=== PATIENT | female | born 2000 | race Caucasian/White ===

== ENCOUNTER 2019-05-14 18:34 | Emergency (ER) | payer SELFPAY | END 2019-05-14 20:30 | disposition left against medical advice (07) | LOC: MW.ED 18:34 | DX: Z53.21 Procedure and treatment not carried out due to patient leaving prior to being seen by health care provider (principal) ==

== ENCOUNTER 2020-10-04 05:41 | Inpatient (IN) | payer MEDICAID ==
[2020-10-04] MEDS ORDERED: Water For Irrigation,Sterile 1,000 ML Container IRR PRN (05:59)
[2020-10-04] MEDS ORDERED: Misoprostol 200 MCG Tab PO PRN (05:59)
[2020-10-04] MEDS ORDERED: Sodium Chloride 0.9% 2.5 ML Syringe FLUSH PRN (05:59)
[2020-10-04] MEDS ORDERED: Lidocaine 1% 50 ML MDV INJECT PRN (05:59)
[2020-10-04] MEDS ORDERED: Tranexamic Acid 1,000 MG in Sodium Chloride 0.9% 100 ML IV PRN (05:59)
[2020-10-04] MEDS ORDERED: Butorphanol 1 MG/ML SDV IVPUSH PRN (05:59)
[2020-10-04] MEDS ORDERED: Sodium Chloride 0.9% 10 ML Syringe FLUSH PRN (05:59)
[2020-10-04] MEDS ORDERED: Carboprost Tromethamine 250 MCG/1 ML Amp IM PRN (05:59)
[2020-10-04] MEDS ORDERED: Methylergonovine 0.2 MG/1 ML Amp IM PRN (05:59)
[2020-10-04] MEDS ORDERED: Nalbuphine 10 MG/1 ML Vial IVPUSH PRN (05:59)
[2020-10-04] MEDS ORDERED: Sodium Chloride 0.9% 10 ML SDV IV PRN (05:59)
[2020-10-04] MEDS ORDERED: Oxytocin/0.9 % Sodium Chloride 30 UNIT/500 ML BAG IV SCH (06:00)
[2020-10-04] MEDS: Lactated Ringers 1,000 ML IV SCH ×3 (07:15→08:46)
[2020-10-04] MEDS ORDERED: Ropivacaine HCl/PF 200 ML ONE (08:06)
[2020-10-04] MEDS ORDERED: Bupivacaine 0.25% 10 ML SDV ONE (08:07)
--- NOTE | 2020-10-04 08:35 | PCM.PREANE ---
Preanesthetic Assessment - Anesthesia/Transfusion/Family Hx Anesthesia History: Prior Anesthesia Without Reaction - Review of Systems General: No Symptoms Pulmonary: No Symptoms Cardiovascular: No Symptoms Gastrointestinal: No Symptoms Neurological: No Symptoms Other: Reports: None - Physical Assessment NPO Status Date: 10/04/20 NPO Status Time: 00:00 Height: 5 ft 2 in Weight: 123 lb ASA Class: 2 Mental Status: Alert & Oriented x3 Airway Class: Mallampati = 3 Dentition: Reports: Normal Dentition ROM/Head Extension: Full Lungs: Clear to Auscultation, Normal Respiratory Effort Cardiovascular: Regular Rate, Regular Rhythm - Lab Values: Laboratory Last Values WBC 15.11 K/uL (4.0-11.0) H 10/04/20 06:20 RBC 4.19 M/uL (4.30-5.90) L 10/04/20 06:20 Hgb 11.0 g/dL (12.0-16.0) L 10/04/20 06:20 Hct 33.4 % (36.0-46.0) L 10/04/20 06:20 MCV 79.7 fL (80.0-98.0) L 10/04/20 06:20 MCH 26.3 pg (27.0-32.0) L 10/04/20 06:20 MCHC 32.9 g/dL (31.0-37.0) 10/04/20 06:20 RDW Std Deviation 41.7 fl (28.0-62.0) 10/04/20 06:20 RDW Coeff of Sam 15 % (11.0-15.0) 10/04/20 06:20 Plt Count 386 K/uL (150-400) 10/04/20 06:20 MPV 9.10 fL (7.40-12.00) 10/04/20 06:20 Nucleated RBC % 0.0 /100WBC 10/04/20 06:20 Nucleated RBCs # 0 K/uL 10/04/20 06:20 - Blood Blood Available: Yes Product(s) Available: PRBC - Anesthesia Plan Pre-Op Medication Ordered: None - Acknowledgements Anesthesia Type Planned: Epidural Pt an Appropriate Candidate for the Planned Anesthesia: Yes Alternatives and Risks of Anesthesia Discussed w Pt/Guardian: Yes Pt/Guardian Understands and Agrees with Anesthesia Plan: Yes PreAnesthesia Questionnaire - Past Health History Medical/Surgical History: Denies Medical/Surgical History HEENT History: Reports: Other (See Below) Other HEENT History: chronic excessive wax buildup - Past Surgical History Head Surgeries/Procedures: Reports: None HEENT Surgical History: Reports: None - SUBSTANCE USE Tobacco Use Status *Q: Never Tobacco User Tobacco Use Within Last Twelve Months: No Recreational Drug Use History: No - CURRENT (IN HOUSE) MEDS Current Meds: Current Medications Butorphanol Tartrate (Butorphanol 1 Mg/Ml Sdv) 1 mg IVPUSH Q1H PRN PRN Reason: Pain (severe 7-10) Carboprost Tromethamine (Carboprost Tromethamine 250 Mcg/1 Ml Amp) 250 mcg IM ASDIRECTED PRN PRN Reason: Post Hemorrhage Oxytocin/Sodium Chloride (Oxytocin 30 Unit/500 Ml-Ns) 30 unit in 500 mls @ 125 mls/hr IV TITRATE KELL[facility] Tranexamic Acid 1,000 mg/ (Sodium Chloride) 110 mls @ 660 mls/hr IV ONETIME PRN PRN Reason: Bleeding Lactated Ringer's (Ringers, Lactated) 1,000 mls @ 150 mls/hr IV ASDIRECTED KELLEN Lidocaine HCl (Lidocaine 1% 50 Ml Mdv) 50 ml INJECT ONETIME PRN PRN Reason: Laceration repair Methylergonovine Maleate (Methylergonovine 0.2 Mg/1 Ml Amp) 0.2 mg IM ASDIRECTED PRN PRN Reason: Post Hemorrhage Misoprostol (Misoprostol 200 Mcg Tab) 200 mcg PO ONETIME PRN PRN Reason: Post Hemorrhage Nalbuphine HCl (Nalbuphine 10 Mg/1 Ml Vial) 10 mg IVPUSH Q1H PRN PRN Reason: Pain (severe 7-10) Sodium Chloride (Sodium Chloride 0.9% 10 Ml Syringe) 10 ml FLUSH ASDIRECTED PRN PRN Reason: Keep Vein Open Sodium Chloride (Sodium Chloride 0.9% 2.5 Ml Syringe) 2.5 ml FLUSH ASDIRECTED PRN PRN Reason: Keep Vein Open Sodium Chloride (Sodium Chloride 0.9% 10 Ml Sdv) 10 ml IV ASDIRECTED PRN PRN Reason: IV Use Sterile Water (Water For Irrigation,Sterile 1,000 Ml Container) 1,000 ml IRR ASDIRECTED PRN PRN Reason: delivery Discontinued Medications Bupivacaine HCl (Bupivacaine 0.25% 10 Ml Sdv) Confirm Administered Dose 10 ml .ROUTE .STK-MED ONE Stop: 10/04/20 08:08 Ropivacaine (Naropin 0.2%) Confirm Administered Dose 200 mls @ as directed .ROUTE .[place]-[facility] ONE Stop: 10/04/20 08:07 - Pre-Procedure Checklist Attending Provider Aware: Yes Chart Reviewed: Yes Consent Signed: Yes Labs Reviewed: Yes VS/FHR Reviewed: Yes Patient Identification Confirmation Method: Reports: Verbal Patient Pt an Appropriate Candidate for the Planned Anesthesia: Yes Alternatives and Risks of Anesthesia Discussed w Pt/Guardian: Yes - Procedure Procedure Start Date: 10/04/20 Procedure Start Time: 07:[address]: Reports: Blood Pressure, Heart Rate, SPO2 Functional IV: Yes Safety Measures: Reports: Patient Identified, Procedure Verified, Site Verified, Procedure Time Out Patient Position: Reports: Sitting Prep: Reports: Betadine x3, Sterile Drape Local Anesthetic: Reports: Intradermal Wheal w Lidocaine 1% Regional Placement Level: Reports: L3-4 Needle: Reports: 17 g Touhy Approach: Reports: Midline Technique: Reports: BEVERLY Plastic Syringe Parasthesia: Reports: None Fluid Obtained: Reports: None Test Dose Time: 08:20 Test Dose Medication: Reports: Lidocaine 1.5% w Epinephrine 1:200,000 Test Dose Response: Reports: Negative Loading Dose Time: 08:19 Loading Dose Medication: bupivicaine 0.25% 10cc Loading Dose Patient Position: sitting Continuous Infusion Start Time: 08:25 Continuous Infusion Medication: ropivicaine 0.2% Continuous Infusion Rate: 16 Continuous Infusion PCS Bolus Option: 4 Continuous Infusion Lockout Dose (cc/hr): 32 Patient Position Post Placement: Reports: Supline/VASILIY VS and FHR Monitored in Unit Post Placement: Yes Procedure End Date: 10/04/20 Procedure End Time: 08:55
[2020-10-04] MEDS ORDERED: Ondansetron 4 MG/2 ML SDV IVPUSH PRN (09:22)
[2020-10-04] MEDS ORDERED: Witch Hazel Medicated Pads 40/Jar TOP PRN (11:29)
[2020-10-04] MEDS ORDERED: Acetaminophen 500 MG Tab PO PRN (11:29)
[2020-10-04] MEDS ORDERED: Ibuprofen 400 MG Tab PO PRN (11:29)
[2020-10-04] MEDS ORDERED: oxyCODONE 5 MG Tab PO PRN (11:29)
[2020-10-04] MEDS ORDERED: Benzocaine/Menthol 20%-0.5% Spray 78 GM Cannister TOP PRN (11:29)
[2020-10-04] MEDS ORDERED: Bisacodyl 10 MG Supp RECTAL PRN (11:29)
[2020-10-04] MEDS ORDERED: Ibuprofen 800 MG Tab PO PRN (11:29)
[2020-10-04] MEDS ORDERED: Docusate Sodium 100 MG Cap PO PRN (11:29)
[2020-10-04] MEDS ORDERED: Lanolin 100% Cream 7 GM Tube TOP PRN (11:29)
--- NOTE | 2020-10-04 11:35 | PCM.DEL ---
L & D Note - General Info Date of Service: 10/04/20 Mother's Due Date: 09/30/20 - Delivery Note Labor: Spontaneous Delivery Method: Spontaneous Vaginal Delivery-Single Presentation: Left Occiput Anterior (LAURA) Nuchal Cord: None Anesthesia Type: Epidural, Local Anesthetic: Lidocaine (Xylocaine) 1% Plain Local Anesthetic Volume: 3cc Amniotic Fluid Description: Clear Episiotomy Type: None Laceration: None Placenta: Intact Cord: 3 Vessels Estimated Blood Loss: 100 Resuscitation Needed: No Score 1 min: 8 Score 5 min: 8 Second Stage Interventions: Reports: Pushing Effectively Delivery Comments (Free Text/Narrative):: Live female delivered at 1101am , 8/8 , weight 2920g - General Info Date of Service: 10/04/20 - Patient Data Weight - Most Recent: 55.792 kg I&O - Last 24 Hours: Intake & Output 10/03/20 10/04/20 10/04/20 22:59 06:59 14:59 Intake Total 1999 Balance 1999 Lab Results Last 24 Hours: Laboratory Results - last 24 hr 10/04/20 10/04/20 10/04/20 Range/Units 06:20 06:20 06:25 WBC 15.11 H (4.0-11.0) K/uL RBC 4.19 L (4.30-5.90) M/uL Hgb 11.0 L (12.0-16.0) g/dL Hct 33.4 L (36.0-46.0) % MCV 79.7 L (80.0-98.0) fL MCH 26.3 L (27.0-32.0) pg MCHC 32.9 (31.0-37.0) g/dL RDW Std Deviation 41.7 (28.0-62.0) fl RDW Coeff of Sam 15 (11.0-15.0) % Plt Count 386 (150-400) K/uL MPV 9.10 (7.40-12.00) fL Nucleated RBC % 0.0 /100WBC Nucleated RBCs # 0 K/uL SARS-CoV-2 RNA (JOSE A) NEGATIVE (NEGATIVE) Blood Type A POSITIVE Antibody Screen NEGATIVE Med Orders - Current: Current Medications Butorphanol Tartrate (Butorphanol 1 Mg/Ml Sdv) 1 mg IVPUSH Q1H PRN PRN Reason: Pain (severe 7-10) Carboprost Tromethamine (Carboprost Tromethamine 250 Mcg/1 Ml Amp) 250 mcg IM ASDIRECTED PRN PRN Reason: Post Hemorrhage Oxytocin/Sodium Chloride (Oxytocin 30 Unit/500 Ml-Ns) 30 unit in 500 mls @ 125 mls/hr IV TITRATE [facility] Tranexamic Acid 1,000 mg/ (Sodium Chloride) 110 mls @ 660 mls/hr IV ONETIME PRN PRN Reason: Bleeding Lactated Ringer's (Ringers, Lactated) 1,000 mls @ 150 mls/hr IV ASDIRECTED KELLEN Last Admin: 10/04/20 08:46 Dose: 999 mls/hr Documented by: Lidocaine HCl (Lidocaine 1% 50 Ml Mdv) 50 ml INJECT ONETIME PRN PRN Reason: Laceration repair Misoprostol (Misoprostol 200 Mcg Tab) 200 mcg PO ONETIME PRN PRN Reason: Post Hemorrhage Ondansetron HCl (Ondansetron 4 Mg/2 Ml Sdv) 4 mg IVPUSH Q6H PRN PRN Reason: Nausea/Vomiting Sodium Chloride (Sodium Chloride 0.9% 10 Ml Syringe) 10 ml FLUSH ASDIRECTED PRN PRN Reason: Keep Vein Open Sodium Chloride (Sodium Chloride 0.9% 2.5 Ml Syringe) 2.5 ml FLUSH ASDIRECTED PRN PRN Reason: Keep Vein Open Sodium Chloride (Sodium Chloride 0.9% 10 Ml Sdv) 10 ml IV ASDIRECTED PRN PRN Reason: IV Use Discontinued Medications Bupivacaine HCl (Bupivacaine 0.25% 10 Ml Sdv) Confirm Administered Dose 10 ml .ROUTE .STK-MED ONE Stop: 10/04/20 08:08 Ropivacaine (Naropin 0.2%) Confirm Administered Dose 200 mls @ as directed .[facility] [place] [place] .STK-MED ONE Stop: 10/04/20 08:07 Methylergonovine Maleate (Methylergonovine 0.2 Mg/1 Ml Amp) 0.2 mg IM ASDIRECTED PRN PRN Reason: Post Hemorrhage Nalbuphine HCl (Nalbuphine 10 Mg/1 Ml Vial) 10 mg IVPUSH Q1H PRN PRN Reason: Pain (severe 7-10) Sterile Water (Water For Irrigation,Sterile 1,000 Ml Container) 1,000 ml IRR ASDIRECTED PRN PRN Reason: delivery - Problem List & Annotations (1) Vaginal delivery SNOMED Code(s): 978472927 Code(s): O80 - ENCOUNTER FOR FULL-TERM UNCOMPLICATED DELIVERY Status: Acute Current Visit: Yes - Problem List Review Problem List Initiated/Reviewed/Updated: Yes - My Orders Last 24 Hours: My Active Orders 10/04/20 05:59 Patient Status [ADT] Routine May Shower [RC] ASDIRECTED Notify Provider [RC] PRN Butorphanol [Stadol] 1 mg IVPUSH Q1H PRN Carboprost Tromethamine [Hemabate DS] 250 mcg IM ASDIRECTED PRN Lidocaine 1% [Xylocaine 1%] 50 ml INJECT ONETIME PRN Sodium Chloride 0.9% [Normal Saline] 10 ml IV ASDIRECTED PRN Sodium Chloride 0.9% [Saline Flush] 10 ml FLUSH ASDIRECTED PRN Sodium Chloride 0.9% [Saline Flush] 2.5 ml FLUSH ASDIRECTED PRN Tranexamic Acid [Cyklokapron] 1,000 mg Sodium Chloride 0.9% [Normal Saline] 100 ml IV ONETIME miSOPROStoL [Cytotec] 200 mcg PO ONETIME PRN 10/04/20 06:00 Lactated Ringers [Ringers, Lactated] 1,000 ml IV ASDIRECTED Oxytocin/0.9 % Sodium Chloride [Oxytocin 30 Unit/500 ML-NS] 30 unit in 500 ml IV TITRATE 10/04/20 06:20 RPR (SYPHILIS SERO) W/ RFLX [REF] Routine 10/04/20 09:22 Ondansetron [Zofran] 4 mg IVPUSH Q6H PRN 10/04/20 11:29 Patient Status [ADT] Routine May Shower [RC] ASDIRECTED Up ad Noelle [RC] ASDIRECTED Vital Signs [RC] PER UNIT ROUTINE Acetaminophen [Tylenol Extra Strength] 1,000 mg PO Q4H PRN Acetaminophen [Tylenol Extra Strength] 500 mg PO Q4H PRN Benzocaine/Menthol [Dermoplast Pain Relief 20%-0.5% [place]] 78 gm TOP ASDIRECTED PRN Docusate Sodium [Colace] 100 mg PO Q12H PRN Ibuprofen [Motrin] 400 mg PO Q4H PRN Ibuprofen [Motrin] 800 mg PO Q6H PRN Lanolin [Lansinoh HPA] See Dose Instructions TOP ASDIRECTED PRN bisacodyL [Dulcolax] 10 mg RECTAL ONETIME PRN oxyCODONE 5 mg PO Q2H PRN witch Lelo [Tucks] 1 pad TOP ASDIRECTED PRN Assess Lochia [WOMSER] Per Unit Routine Assess Uterine Involution [WOMSER] Per Unit Routine Peripheral IV Discontinue [OM.PC] Routine Resuscitation Status Routine 10/05/20 05:11 HEMOGLOBIN/HEMATOCRIT,HH [HEME] Timed - Assessment Assessment:: 20yo P1 s/p PPD0 Rh positive Rubella Immune - Plan Plan:: Routine Regular diet
[2020-10-04] MEDS: Acetaminophen 500 MG Tab PO PRN (17:22)
[2020-10-05] MEDS: Acetaminophen 500 MG Tab PO PRN (00:25)
--- NOTE | 2020-10-05 07:07 | OR ---
SURGEON: ZULEYMA ALLEN DATE OF PROCEDURE: 10/04/2020 PREOPERATIVE DIAGNOSES: A 20-year-old G1, P0 at 40 weeks and 5 days, admitted in active labor. POSTOPERATIVE DIAGNOSES: A 20-year-old G1, P0 at 40 weeks and 5 days, admitted in active labor. PROCEDURE: Normal spontaneous vaginal delivery. ESTIMATED BLOOD LOSS: 600. INTRAVENOUS FLUIDS: Pitocin running. ANESTHESIA: Epidural. NOTES AND FINDINGS: A live female delivered at 11:01, scores of 8 and 8, weight is 2920 g. BRIEF HISTORY ABOUT THE PATIENT: A 20-year-old G1, P0 low-risk patient who came in complaining of contractions. She was about 4 cm to 5 cm dilated. She made change. She became about 6 to 7 dilated. AROM was done.She was requesting epidural, which she got. After the epidural, the patient had a normal labor curve. She became fully dilated. With the patient being fully dilated, she was encouraged to push. PROCEDURE: With good pushing effort, she delivered the head, subsequently by the anterior and posterior shoulder. The body of the infant was delivered. was placed on the maternal abdomen. Delayed cord clamping was observed. Cord was clamped and cut. Placenta was delivered via controlled cord traction. The perineum was inspected and noted to be intact. Uterus was noted to be well contracted. The patient was left in Labor and Delivery room in stable condition. JOSHUA CAMPOS /[id number] MTDD
--- NOTE | 2020-10-05 10:38 | PCM.PNPP ---
- General Info Date of Service: 10/05/20 Subjective Update: 20yo P1 s/p doing well, normal lochia , Functional Status: Reports: Pain Controlled, Tolerating Diet, Ambulating, Urinating - Review of Systems General: Reports: No Symptoms HEENT: Reports: No Symptoms Pulmonary: Reports: No Symptoms Cardiovascular: Reports: No Symptoms Gastrointestinal: Reports: No Symptoms Genitourinary: Reports: No Symptoms Musculoskeletal: Reports: No Symptoms Skin: Reports: No Symptoms Neurological: Reports: No Symptoms Psychiatric: Reports: No Symptoms - General Info Date of Service: 10/05/20 - Patient Data Vital Signs - Most Recent: Last Vital Signs Temp 35.8 C L 10/05/20 07:52 Pulse 56 L 10/05/20 07:52 Resp 15 10/05/20 07:52 BP 99/66 10/05/20 07:52 Pulse Ox 98 10/05/20 07:52 Weight - Most Recent: 55.792 kg Lab Results - Last 24 Hours: Laboratory Results - last 24 hr 10/04/20 10/05/20 Range/Units 11:01 05:15 Hgb 10.3 L (12.0-16.0) g/dL Hct 31.8 L (36.0-46.0) % Cord ABG pH 7.219 (7.18-7.38) Cord ABG Base Excess -7.0 (-10--2) Cord VBG pH 7.348 (7.25-7.45) Cord VBG Base Excess -4.7 (-10--2) Med Orders - Current: Current Medications Acetaminophen (Acetaminophen 500 Mg Tab) 500 mg PO Q4H PRN PRN Reason: Pain (mild 1-3) Acetaminophen (Acetaminophen 500 Mg Tab) 1,000 mg PO Q4H PRN PRN Reason: Pain (mild 1-3) Last Admin: 10/05/20 00:25 Dose: 1,000 mg Documented by: Benzocaine/Menthol (Benzocaine/Menthol 20%-0.5% [place] 78 Gm Cannister) 78 gm TOP ASDIRECTED PRN PRN Reason: Perineal Comfort Measure Last Admin: 10/04/20 15:31 Dose: 1 bottle Documented by: Bisacodyl (Bisacodyl 10 Mg Supp) 10 mg RECTAL ONETIME PRN PRN Reason: Constipation Butorphanol Tartrate (Butorphanol 1 Mg/Ml Sdv) 1 mg IVPUSH Q1H PRN PRN Reason: Pain (severe 7-10) Carboprost Tromethamine (Carboprost Tromethamine 250 Mcg/1 Ml Amp) 250 mcg IM ASDIRECTED PRN PRN Reason: Post Hemorrhage Docusate Sodium (Docusate Sodium 100 Mg Cap) 100 mg PO Q12H PRN PRN Reason: Constipation Emollient Ointment (Lanolin 100% Cream 7 Gm Tube) 0 gm TOP ASDIRECTED PRN PRN Reason: Sore Nipples Last Admin: 10/04/20 15:32 Dose: 1 applic Documented by: Oxytocin/Sodium Chloride (Oxytocin 30 Unit/500 Ml-Ns) 30 unit in 500 mls @ 125 mls/hr IV TITRATE [facility] Last Admin: 10/04/20 12:03 Dose: 999 mls/hr Documented by: Tranexamic Acid 1,000 mg/ (Sodium Chloride) 110 mls @ 660 mls/hr IV ONETIME PRN PRN Reason: Bleeding Lactated Ringer's (Ringers, Lactated) 1,000 mls @ 150 mls/hr IV ASDIRECTED [facility] Last Admin: 10/04/20 08:46 Dose: 999 mls/hr Documented by: Ibuprofen (Ibuprofen 400 Mg Tab) 400 mg PO Q4H PRN PRN Reason: Pain (mild 1-3) Ibuprofen (Ibuprofen 800 Mg Tab) 800 mg PO Q6H PRN PRN Reason: Pain (mild 1-3) Last Admin: 10/04/20 17:23 Dose: 800 mg Documented by: Lidocaine HCl (Lidocaine 1% 50 Ml Mdv) 50 ml INJECT ONETIME PRN PRN Reason: Laceration repair Misoprostol (Misoprostol 200 Mcg Tab) 200 mcg PO ONETIME PRN PRN Reason: Post Hemorrhage Ondansetron HCl (Ondansetron 4 Mg/2 Ml Sdv) 4 mg IVPUSH Q6H PRN PRN Reason: Nausea/Vomiting Oxycodone HCl (Oxycodone 5 Mg Tab) 5 mg PO Q2H PRN PRN Reason: Pain (severe 7-10) Sodium Chloride (Sodium Chloride 0.9% 10 Ml Syringe) 10 ml FLUSH ASDIRECTED PRN PRN Reason: Keep Vein Open Sodium Chloride (Sodium Chloride 0.9% 2.5 Ml Syringe) 2.5 ml FLUSH ASDIRECTED PRN PRN Reason: Keep Vein Open Sodium Chloride (Sodium Chloride 0.9% 10 Ml Sdv) 10 ml IV ASDIRECTED PRN PRN Reason: IV Use Witch Lelo (Witch Lelo Medicated Pads 40/Jar) 1 pad TOP ASDIRECTED PRN PRN Reason: comfort care Last Admin: 10/04/20 15:30 Dose: 1 pad Documented by: Discontinued Medications Bupivacaine HCl (Bupivacaine 0.25% 10 Ml Sdv) Confirm Administered Dose 10 ml .ROUTE .[facility] ONE Stop: 10/04/20 08:08 Last Admin: 10/04/20 21:49 Dose: Not Given Documented by: Ropivacaine (Naropin 0.2%) Confirm Administered Dose 200 mls @ as directed .ROUTE .[facility] ONE Stop: 10/04/20 08:07 Last Admin: 10/04/20 21:49 Dose: Not Given Documented by: Methylergonovine Maleate (Methylergonovine 0.2 Mg/1 Ml Amp) 0.2 mg IM ASDIRECTED PRN PRN Reason: Post Hemorrhage Nalbuphine HCl (Nalbuphine 10 Mg/1 Ml Vial) 10 mg IVPUSH Q1H PRN PRN Reason: Pain (severe 7-10) Sterile Water (Water For Irrigation,Sterile 1,000 Ml Container) 1,000 ml IRR ASDIRECTED PRN PRN Reason: delivery - Interaction Support Person: Mother, Significant Other - Recovery Exam Fundal Tone: Firm Fundal Level: 1 Fingerbreadths Below Umbilicus Fundal Placement: Midline Lochia Amount: Small Lochia Color: Rubra/Red Perineum Description: Intact, Minimal Bruising/Swelling Episiotomy/Laceration: None Bladder Status: Voiding Urinary Elimination: Voided - Exam General: Alert HEENT: Pupils Equal Neck: Supple Lungs: Clear to Auscultation Cardiovascular: Regular Rate, Regular Rhythm GI/Abdominal Exam: Normal Bowel Sounds Extremities: Normal Inspection Neurological: No New Focal Deficit Psy/Mental Status: Alert - Problem List & Annotations (1) Vaginal delivery SNOMED Code(s): 495504588 Code(s): O80 - ENCOUNTER FOR FULL-TERM UNCOMPLICATED DELIVERY Status: Acute Current Visit: Yes - Problem List Review Problem List Initiated/Reviewed/Updated: Yes - My Orders Last 24 Hours: My Active Orders 10/04/20 11:29 Patient Status [ADT] Routine Up ad Noelle [RC] ASDIRECTED Vital Signs [RC] PER UNIT ROUTINE Acetaminophen [Tylenol Extra Strength] 1,000 mg PO Q4H PRN Acetaminophen [Tylenol Extra Strength] 500 mg PO Q4H PRN Benzocaine/Menthol [Dermoplast Pain Relief 20%-0.5% [place]] 78 gm TOP ASDIRECTED PRN Docusate Sodium [Colace] 100 mg PO Q12H PRN Ibuprofen [Motrin] 400 mg PO Q4H PRN Ibuprofen [Motrin] 800 mg PO Q6H PRN Lanolin [Lansinoh HPA] See Dose Instructions TOP ASDIRECTED PRN bisacodyL [Dulcolax] 10 mg RECTAL ONETIME PRN oxyCODONE 5 mg PO Q2H PRN witch Lelo [Tucks] 1 pad TOP ASDIRECTED PRN Assess Lochia [WOMSER] Per Unit Routine Assess Uterine Involution [WOMSER] Per Unit Routine Peripheral IV Discontinue [OM.PC] Routine Resuscitation Status Routine 10/05/20 Breakfast Regular Diet [DIET] - Assessment Assessment:: 20yo P1 s/p PPD1, stable Rh positive Rubella Immune - Plan Plan:: Routine Regular diet Discharge home today discharge teaching
== END 2020-10-05 14:26 | disposition home or self-care (01) | DRG 807 ==
LOC: MW.OBCHECK 05:41 → MW.OB 05:42 → MW.OBCHECK 05:59 → MW.OB 05:59 → OBSVTOIN 11:01 → MW.OB 13:45
PROVIDERS: ADMIT Obstetrics & Gynecology; ATTEND Obstetrics & Gynecology
PROC: 10E0XZZ Delivery of Products of Conception, External Approach (ICD-10-PCS; principal; 2020-10-04)
PROC: 10907ZC Drainage of Amniotic Fluid, Therapeutic from Products of Conception, Via Natural or Artificial Opening (ICD-10-PCS; 2020-10-04)
PROC: 3E0R3BZ Introduction of Anesthetic Agent into Spinal Canal, Percutaneous Approach (ICD-10-PCS; 2020-10-04)
DX: O48.0 Post-term pregnancy (principal); Z37.0 Single live birth; Z3A.40 40 weeks gestation of pregnancy; Z20.822 Contact with and (suspected) exposure to COVID-19
CPT/HCPCS: 36415; 51702; 59025; 59409; 82803; 85014; 85018; 85027; 86592; 86850; 86900; 86901; A9270-GY; J2590; J2795; J3490; J7120; U0002

== ENCOUNTER 2020-11-05 14:50 | Emergency (ER) | payer MEDICAID ==
[2020-11-05] MEDS ORDERED: Sertraline 50 MG Tab PO ONE (15:41)
--- NOTE | 2020-11-05 16:17 | EDM.PDOC ---
ED HPI GENERAL MEDICAL PROBLEM - General Chief Complaint: Behavioral/Psych Stated Complaint: POST DEPRESSION Time Seen by Provider: 11/05/20 15:01 - History of Present Illness INITIAL COMMENTS - FREE TEXT/NARRATIVE: HISTORY AND PHYSICAL: History of present illness: This is a 20-year-old female who recently gave to a baby daughter and presents ER today from Dr. Crump's office for further evaluation of depression . Patient reports that she went to see Dr. Loyola today because has been having episodes of depression, anger for the last week. Patient reports that whenever she looks in the mirror she does not like which she sees. Patient reports that when she goes into the bathroom and looks in the mirror she gets extremely depressed rolls up in a ball and batches her head against the floor while crying. Patient reports that she is extremely short with her fianc and gets extremely angry very rapidly. Patient adamantly denies any suicidal ideation or thoughts of killing herself. She denies any homicidal ideation or thoughts of harming her baby or anyone else. Patient reports that she would never kill herself secondary to her desire to live for her daughter and want to see her daughter for up. Patient reports that she went to see Dr. Crump today to try to get assistance with her depression and to be placed on medication. She reports that she was afraid to tell Dr. Loyola her feelings because she was afraid that Dr. Loyola would be concerned that she was having plans of harming herself and killing herself which she adamantly denies. Patient denies any recent fevers, shakes, chills, nausea, vomiting, diarrhea, dysuria, frequency, urgency, chest pain, shortness of breath. Review of systems: As per history of present illness and below otherwise all systems reviewed and negative. Past medical history: As per history of present illness and as reviewed below otherwise noncontributory. Surgical history: As per history of present illness and as reviewed below otherwise noncontrib utory. Social history: No reported history of drug abuse. Family history: As per history of present illness and as reviewed below otherwise noncontributory. Physical exam: This patient was seen and evaluated during the 2019 SARS-CoV-2 novel coronavirus pandemic period. Community viral transmission is ongoing at time of this encounter and the emergency department is operating under pandemic response procedures. Constitutional: Patient is oriented to person, place, and time. Appears well- developed and well-nourished. No distress. HEENT: Moist mucous membranes Head: Normocephalic and atraumatic Eyes: Right eye exhibits no discharge. Left eye exhibits no discharge. No scleral icterus Neck: Normal range of motion. No tracheal deviation present. Cardiovascular: Normal rate and regular rhythm. Pulmonary: Effort normal, no respiratory distress. Abdominal: No distention Musculoskeletal: Normal range of motion Neurologic: Alert and oriented to person, place and time. Skin: [place], warm and dry. Psychiatric: Normal mood and affect. Behavior is normal. Judgment and thought content normal. Nursing note and vital signs have been reviewed Diagnostics: [] Therapeutics: [] Assessment and plan: This is a 20-year-old female who presents ER today from Dr. Crump's office for further evaluation of depression. In the ED, the patient is appropriate, articulate with her feelings, but adamantly denies any suicidal ideations. Patient reports that she has had thoughts of harming herself by bashing her head against the floor but would never attempt to kill herself secondary to the of her baby. Patient reports that she does have a history of suicidal attempt when she was 13 years old that required admission. I have discussed the case with Dr. Crump. At this time the patient is not giving me any objective statements that would allow me to commit her for admission. Patient does not wish to be admitted to the hospital but does wish to be seen by a mental health specialist at some point will get started on medication for her depression. We have attempted to arrange outpatient follow- up tomorrow for the patient however she reports that she is going to [place] for her wedding because that is where her mother and the rest of her family are. She reports that although the waiting a stressful that it is not a source of severe stress to her and that is not a trigger for her. Dr. Loyola has recommended that I start her on Zoloft 25 mg for 1 week and then increase it to 50 mg. She has requested that the patient make an appointment with her when she returns from [place] next week. Patient is extremely satisfied with this plan. At this time, I feel that the patient is safe to go home as she has not verbalized any suicidal thoughts or s uicidal statements to me. Patient does promise to return to the ER if she should have any further thoughts or any new thoughts of suicidality. Patient reports that she will have her fianc call me when she gets home. I had initially requested that I talk to him however she reports he is currently at home and that she has the only phone that the 2 of them share. Reassessment at the time of disposition demonstrates that the patient is in no acute distress. The patient has remained stable throughout the entire ED visit and is without objective evidence for acute process requiring urgent inte rvention or hospitalization. The patient is stable for discharge, counseling is provided as documented above, discussed symptomatic treatment and specific conditions for return. I have spoken with the patient/caregiver and discussed todays findings, in addition to providing specific details for the plan of care. Questions are answered and there is agreement with the plan. Definitive disposition and diagnosis as appropriate pending reevaluation and review of above. - Related Data Allergies Allergy/AdvReac Type Severity Reaction Status Date / Time coconut Allergy Hives Verified 11/05/20 14:56 Home Meds: Home Meds Sertraline [Zoloft] 25 mg PO DAILY #30 tablet 11/05/20 [Rx] Past Medical History - Past Health History Medical/Surgical History: Denies Medical/Surgical History HEENT History: Reports: Other (See Below) Other HEENT History: chronic excessive wax buildup Cardiovascular History: Reports: None Respiratory History: Reports: None Gastrointestinal History: Reports: None Genitourinary History: Reports: None [employer] History: Reports: Musculoskeletal History: Reports: None Neurological History: Reports: None Psychiatric History: Reports: None Endocrine/Metabolic History: Reports: None Hematologic History: Reports: None Immunologic History: Reports: None Oncologic (Cancer) History: Reports: None Dermatologic History: Reports: None - Infectious Disease History Infectious Disease History: Reports: None - Past Surgical History Head Surgeries/Procedures: Reports: None HEENT Surgical History: Reports: None Cardiovascular Surgical History: Reports: None Respiratory Surgical History: Reports: None GI Surgical History: Reports: None Female Surgical History: Reports: None Endocrine Surgical History: Reports: None Neurological Surgical History: Reports: None Musculoskeletal Surgical History: Reports: None Oncologic Surgical History: Reports: None Dermatological Surgical History: Reports: None Social & Family History - Family History Family Medical History: No Pertinent Family History - Recreational Drug Use Recreational Drug Use: Yes Recreational Drug Type: Reports: Marijuana/Hashish ED ROS GENERAL - Review of Systems Review Of Systems: See Below ED EXAM, GENERAL - Physical Exam Exam: See Below Course - Vital Signs Last Recorded V/S: Last Vital Signs Temp 97.5 F 11/05/20 14:54 Pulse 49 L 11/05/20 15:47 Resp 16 11/05/20 15:47 BP 111/76 11/05/20 15:47 Pulse Ox 99 11/05/20 15:47 - Orders/Labs/Meds Orders: Active Orders 24 hr Category Date Time Status Communication Order [RC] STAT Care 11/05/20 14:50 Active Suicide Precautions [RC] .Per Facility Policy Care 11/05/20 15:08 Active Meds: Medications Discontinued Medications Generic Name Dose Route Start Last Admin Trade Name Freq PRN Reason Stop Dose Admin Sertraline HCl 25 mg 11/05/20 15:41 Sertraline 50 Mg Tab PO 11/05/20 15:42 ONETIME ONE Departure - Departure Time of Disposition: 16:17 Disposition: Home, Self-Care 01 Condition: Good Clinical Impression: depression - Discharge Information Instructions: [place] Blues Referrals: PCP,None [Primary Care Provider] - Additional Instructions: Your seen and evaluated in the ER today secondary to depression. I have discussed your case with your [employer] doctor and she has recommended that we start you on Zoloft 25 mg for 7 days and then increase it to 50 mg daily after that. She has requested that you make an appointment to see her when you return from your waiting in [place]. Please return to the ED here sooner or in [place] if you start developing any new or concerning symptoms, any increasing thoughts of harming yourself, or any thoughts at all of suicidality. The following information is given to patients seen in the emergency department who are being discharged to home. This information is to outline your options for follow-up care. We provide all patients seen in our emergency department with a follow-up referral. The need for follow-up, as well as the timing and circumstances, are variable depending upon the specifics of your emergency department visit. If you don't have a primary care physician on staff, we will provide you with a referral. We always advise you to contact your personal physician following an emergency department visit to inform them of the circumstance of the visit and for follow-up with them and/or the need for any referrals to a consulting specialist. The emergency department will also refer you to a specialist when appropriate. This referral assures that you have the opportunity for follow-up care with a specialist. All of these measure are taken in an effort to provide you with optimal care, which includes your follow-up. Under all circumstances we always encourage you to contact your private physician who remains a resource for coordinating your care. When calling for follow-up care, please make the office aware that this follow-up is from your recent emergency room visit. If for any reason you are refused follow-up, please contact the Emergency Department at and asked to speak to the emergency department charge nurse. [facility] [address] [place] [address] [id number] Sepsis Event Note (ED) - Focused Exam Vital Signs: Vital Signs Temp Pulse Resp BP Pulse Ox 11/05/20 15:47 49 L 16 111/76 99 11/05/20 14:54 97.5 F 52 L 18 112/71 97 - My Orders Last 24 Hours: My Active Orders 11/05/20 14:50 Communication Order [RC] STAT 11/05/20 15:08 Suicide Precautions [RC] .Per Facility Policy - Assessment/Plan Last 24 Hours: My Active Orders 11/05/20 14:50 Communication Order [RC] STAT 11/05/20 15:08 Suicide Precautions [RC] .Per Facility Policy
== END 2020-11-05 16:52 | disposition home or self-care (01) ==
LOC: MW.ED 14:50
DX: O99.345 Other mental disorders complicating the puerperium (principal); F53.0 Postpartum depression; Z91.018 Allergy to other foods; Z79.899 Other long term (current) drug therapy
CPT/HCPCS: 99283; A9270